=== PATIENT | female | born 1995 | race Hispanic/Latino ===

== ENCOUNTER 2019-02-18 23:16 | Emergency (ER) | payer BC ==
[2019-02-18] MEDS ORDERED: DiphenhydrAMINE 50 mg/ml Inj ONE (23:30)
[2019-02-18] MEDS ORDERED: methylPREDNISolone 125 MG in Sodium Chloride 0.9% 50 ML IV STA (23:31)
[2019-02-18] MEDS ORDERED: DiphenhydrAMINE 50 mg/ml Inj IVP STA (23:31)
[2019-02-18 23:51] LABS: BASO # 0.1 K/uL (0.0-0.2); BASO % 1.1 % (0.0-2.0); EOS # 0.3 K/uL (0.0-0.7); EOS % 3.7 % (0.0-4.0); HEMOGLOBIN 14.6 g/dL (12.0-16.0); LYMPH # 3.9 K/uL (1.0-4.3); LYMPH % 45.9 % (20.0-40.0); MEAN CELL VOLUME 91.2 fl (81.0-99.0); MEAN CORPUSCULAR HEMOGLOBIN 30.6 pg (27.0-31.0); MEAN CORPUSCULAR HGB CONC 33.5 g/dL (33.0-37.0); MONO % 11.9 % (0.0-10.0); NEUT # 3.2 K/uL (1.8-7.0); NEUT % 37.4 % (50.0-75.0); NRBC % 0.1 % (0.0-0.0); RBC 4.77 Mil/uL (3.80-5.20); RED CELL DISTRIBUTION WIDTH 13.1 % (11.5-14.5); WHITE BLOOD COUNT 8.5 K/uL (4.8-10.8)
[2019-02-18 23:56] LABS: SQUAMOUS EPITHIAL 3 /hpf (0-5); URINE BACTERIA RARE (<OCC); URINE BILIRUBIN NEGATIVE (NEGATIVE); URINE BLOOD NEGATIVE (NEGATIVE); URINE CLARITY SLIGHTY-CLOUDY (Clear); URINE COLOR STRAW (YELLOW); URINE GLUCOSE (UA) NEG (NEGATIVE); URINE LEUKOCYTE ESTERASE SMALL Leu/uL (Negative); URINE PROTEIN NEGATIVE (NEGATIVE); URINE UROBILINOGEN 0.2-1.0 mg/dL (0.2-1.0)
[2019-02-18 23:59] LABS: BLOOD UREA NITROGEN 11 mg/dl (7-17); CALCIUM 9.1 mg/dL (8.4-10.2); GFR NON-AFRICAN AMERICAN > 60
[2019-02-19 01:08] VITALS: BP 122/67; PULSE 86; RESP 16; O2SAT 100
--- NOTE | 2019-02-19 01:36 | ED PDOC ---
HPI: Eye Injury/Pain Time Seen by Provider: 02/18/19 23:22 Chief Complaint (Nursing): Allergic Reaction Chief Complaint (Provider): Allergic Reaction History Per: Patient History/Exam Limitations: no limitations Onset/Duration Of Symptoms: Mins (x 20) Current Symptoms Are (Timing): Still Present Injury To Eye?: No Associated Symptoms: Swelling, Itching, Other (tearing) Additional Complaint(s): 23 year old male with no significant medical history presents to the ED with bilateral eye itching, swelling and tearing, sudden onset 20 minutes prior to arrival. Patient reports she was trying to sleep when she looked in the mirror and saw that her eyes were swollen. She denies ever experiencing a reaction. Patient does not feel as though she could have been bit by an insect. Denies recent exposure to new food, perfumes, face products, soaps, detergents and medications. She does not have any known allergies. Pt report she does occasionally wear contact lenses and wore them yesterday. Patient also denies lip or tongue swelling and difficulty breathing. LMP 1 week ago. PMD: Dr. Alejandre Past Medical History Reviewed: Historical Data, Nursing Documentation, Vital Signs Vital Signs: Last Vital Signs Temp 9.4 F L 02/19/19 01:07 Pulse 86 02/19/19 01:07 Resp 16 02/19/19 01:07 BP 122/67 02/19/19 01:07 Pulse Ox 100 02/19/19 01:07 Primary Care Provider: FAMILY PROVIDER,NO - Medical History PMH: No Chronic Diseases - Surgical History Surgical History: No Surg Hx - Family History Family History: States: Unknown Family Hx - Home Medications Home Medications: Ambulatory Orders Medication Instructions Recorded DiphenhydrAMINE [Benadryl] 25 mg PO Q6 #30 cap 02/19/19 Famotidine [Pepcid] 20 mg PO BID #30 tab 02/19/19 Ofloxacin Ophth 0.3% [Ocuflox 1 - 2 ea BOTHEYES Q2 7 Days #1 02/19/19 Ophth 0.3%] bottle predniSONE [Prednisone] 20 mg PO DAILY 6 Days #12 tab 02/19/19 - Allergies Allergies/Adverse Reactions: Allergies Allergy/AdvReac Type Severity Reaction Status Date / Time No Known Allergies Allergy Verified 02/18/19 23:21 Review of Systems ROS Statement: Except As Marked, All Systems Reviewed And Found Negative Eyes: Positive for: Other (bilateral itching, swelling and tearing to eyes) ENT: Negative for: Mouth Swelling, Other (tongue swelling) Physical Exam - Reviewed Nursing Documentation Reviewed: Yes Vital Signs Reviewed: Yes - Physical Exam Comments: GENERAL APPEARANCE: Patient is awake, alert, oriented x 3, and in mild, obvious discomfort. SKIN:(-) excoriations, (-) drainage, (-) crusting of lesions is present, (-) other rashes. HEENT: tearing bilaterally (+) diffuse periorbital swelling and redness bilaterally, left worse than right. (+) chemosis in left eye (+) conjunctival injection, (-) purulent discharge. Oropharynx: clear (-) tongue or lip swelling, (-) tonsillar exudates, (-) erythema. Airway: patent (-) stridor, (-) hoarseness. Mucous membranes moist. Nares: Patent (-) rhinorrhea. NECK: (-) lymphadenopathy, (-) tenderness. CARDIOVASCULAR: Normal rate and rhythm. (-) murmur, (-) gallop. CHEST: (-) rales, (-) wheezing, (-) dyspnea, (-) stridor. Breath sounds equal bilaterally. Speaking full sentences, respirations easy and non labored ABDOMEN: Soft. (-) tenderness, (-) distention, (-) HSM. NEURO: Mental status: Patient is alert, oriented, and with normal strength and tone. - Laboratory Results Result Diagrams: 02/18/19 23:32 02/18/19 23:32 Lab Results: Urine Color Straw (YELLOW) 02/18/19 23:32 Urine Clarity Slighty-cloudy (Clear) 02/18/19 23:32 Urine pH 7.0 (5.0-8.0) 02/18/19 23:32 Ur Specific [place] < 1.005 (1.003-1.030) 02/18/19 23:32 Urine Protein Negative mg/dL (NEGATIVE) 02/18/19 23:32 Urine Glucose (UA) Neg mg/dL (NEGATIVE) 02/18/19 23:32 Urine Ketones Negative mg/dL (NEGATIVE) 02/18/19 23:32 Urine Blood Negative (NEGATIVE) 02/18/19 23:32 Urine Nitrate Negative (NEGATIVE) 02/18/19 23:32 Urine Bilirubin Negative (NEGATIVE) 02/18/19 23:32 Urine Urobilinogen 0.2-1.0 mg/dL (0.2-1.0) 02/18/19 23:32 Ur Leukocyte Esterase Small Stanislav/uL (Negative) 02/18/19 23:32 Urine RBC (Auto) 1 /hpf (0-3) 02/18/19 23:32 Urine Microscopic WBC 4 /hpf (0-5) 02/18/19 23:32 Ur Squamous Epith Cells 3 /hpf (0-5) 02/18/19 23:32 Urine Bacteria Rare (<OCC) 02/18/19 23:32 - ECG O2 Sat by Pulse Oximetry: 100 (RA) Pulse Ox Interpretation: Normal Medical Decision Making Medical Decision Makin:31 MDM: allergic reaction --BMP --CBC --Urine dip --Benadryl 50 mg PO --Pepcid 20 mg IVP --Solu-medrol 125 mg IVP --UA 00:40 on re eval pt is feeling better and ready to go, swelling has significantly improved, mild swelling to left upper eye lid, erythema has resolved, pt continues to have clear lungs, no lip or tongue swelling, VSS, pt is stable for dc Discussed results, diagnosis, treatment, return precautions and f/u with pt who is understanding, in agreement and stable for dc --- Scribe Attestation: Documented by Karen Gonzalez, acting as a scribe for Rey Cole PA-C Provider Scribe Attestation: All medical record entries made by the Scribe were at my direction and personally dictated by me. I have reviewed the chart and agree that the record accurately reflects my personal performance of the history, physical exam, medical decision making, and the department course for this patient. I have also personally directed, reviewed, and agree with the discharge instructions and disposition Disposition - Clinical Impression Clinical Impression: Allergic reaction, Chemosis of left conjunctiva - Patient ED Disposition Is Patient to be Admitted: No Counseled Patient/Family Regarding: Studies Performed, Diagnosis, Need For Followup, Rx Given - Disposition Referrals: Ana Alejandre [Primary Care Provider] - Hu Allen MD [Staff Provider] - Disposition: Routine/Home Disposition Time: 00:50 Condition: IMPROVED Additional Instructions: Thank you for letting us take care of you today. Return to ED for new or wors ening symptoms, fever >100.4, lip or tongue swelling, difficulty breathing. Do not wear contact lenses for 2 weeks and symptoms resolved. The emergency medical care you received today was directed at your acute symptoms. If you were prescribed any medication, please fill it and take as directed. It may take several days for your symptoms to resolve. Return to the Emergency Department if your symptoms worsen, do not improve, or if you have any other problems. Please contact your doctor in 2 days for re-evaluation and follow up / or call one of the physicians/clinics you have been referred to that are listed on the Patient Visit Information form that is included in your discharge packet. Bring any paperwork you were given at discharge with you along with any medications you are taking to your follow up visit. Our treatment cannot replace ongoing medical care by a primary care provider (PCP) outside of the emergency department. Prescriptions: DiphenhydrAMINE [Benadryl] 25 mg PO Q6 #30 cap Famotidine [Pepcid] 20 mg PO BID #30 tab Ofloxacin Ophth 0.3% [Ocuflox Ophth 0.3%] 1 - 2 ea BOTHEYES Q2 7 Days #1 bottle predniSONE [Prednisone] 20 mg PO DAILY 6 Days #12 tab Instructions: Skin Rash (DC), Conjunctivitis (Noninfectious [place]) (DC) Forms: [employer] (Cameroonian) Print Language: WELSH - POA Present On Arrival: None
[2019-02-19 05:52] VITALS: TEMP 98.4
== END 2019-02-19 01:07 | disposition home or self-care (01) ==
LOC: H.ER 23:16
DX: T78.40XA Allergy, unspecified, initial encounter (principal); H11.422 Conjunctival edema, left eye
CPT/HCPCS: 80048; 81003; 81025; 85025; 96374; 96375; 99283; J1200; J2920